=== PATIENT | male | born 1965 | race Caucasian/White ===

== ENCOUNTER 2016-08-19 19:57 | Emergency (ER) | payer OTHER ==
[~2016-08-19] VITALS: Ht 182.9 cm; Wt 136.1 kg
[~2016-08-19 19:57] MED LIST: ACHD5005 PO; HYDR-3583 PO; IBP600T1 PO; OXYC-197 PO
[2016-08-19] MEDS: OXYMETAZOLINE (AFRIN) 0.05% NA 15 ML BTL ONE (20:19)
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
[2016-08-19 21:12] VITALS: BP 143/89
== END 2016-08-19 21:12 | disposition home or self-care (01) ==
LOC: EDUNIT# 19:57 → ER 19:58
DX: R04.0 Epistaxis (principal)
CPT/HCPCS: 99282

== ENCOUNTER 2022-10-31 15:16 | Emergency (ER) | payer BC, OTHER ==
[~2022-10-31] VITALS: Ht 177 cm; Wt 127.0 kg
[2022-10-31 15:16] VITALS: BP 142/95
[~2022-10-31 15:16] MED LIST changes: -OXYC-197 PO; +OXYC1TAB87 PO
[2022-10-31] MEDS: KETOROLAC INJ 60 MG/2 ML VIAL ONE ×2 (15:29→15:46)
[2022-10-31] MEDS ORDERED: KETOROLAC INJ 60 MG/2 ML VIAL IM ONE (15:30)
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
[2022-10-31] MEDS ORDERED: Tetanus/Diphtheria/Pertussis (Acell) ADULT Vaccine 0.5 ML IM ONE (15:45)
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
== END 2022-10-31 16:30 | disposition home or self-care (01) ==
LOC: EDUNIT# 15:16 → ER 15:17
DX: T21.21XA Burn of second degree of chest wall, initial encounter (principal); T22.232A Burn of second degree of left upper arm, initial encounter; T20.16XA Burn of first degree of forehead and cheek, initial encounter; M25.562 Pain in left knee; Z23 Encounter for immunization; X12.XXXA Contact with other hot fluids, initial encounter
CPT/HCPCS: 73562